=== PATIENT | female | born 1990 | race Caucasian/White ===

== ENCOUNTER 2017-07-29 13:07 | Emergency (ER) | payer BC ==
[2017-07-29 13:40] VITALS: BP 136/82
[2017-07-29] MEDS ORDERED: Ondansetron 4 MG/2 ML SDV IVPUSH ONE (13:52)
[2017-07-29] MEDS ORDERED: Sodium Chloride 0.9% 1,000 ML IV ONE (13:52)
[2017-07-29] MEDS ORDERED: Ketorolac 30 MG/ML SDV IVPUSH ONE (13:52)
--- NOTE | 2017-07-29 13:59 | EDM.PDOC ---
ED HPI GENERAL MEDICAL PROBLEM - General Chief Complaint: Back Pain or Injury Stated Complaint: BACK PAIN Time Seen by Provider: 07/29/17 13:35 Source of Information: Reports: Patient History Limitations: Reports: No Limitations - History of Present Illness INITIAL COMMENTS - FREE TEXT/NARRATIVE: HISTORY AND PHYSICAL: History of present illness: Patient is a 27-year-old female who presents to the emergency room with complaints of low back pain that radiates around the right hip into the groin. She states she was getting up out of her chair this morning when the pain suddenly came on. The pain as sharp and stabbing. It does not radiate down either glute. The pain was so crippling that she had to sit back down. She was able to get an appointment at the chiropractor this afternoon for an adjustment and did not get any relief with this. Denies any dysuria. Denies any recent injury or trauma. States she has had a kidney stone in the past and feels this pain is not similar to that instance. Review of systems: As per history of present illness and below otherwise all systems reviewed and negative. Past medical history: As per history of present illness and as reviewed below otherwise noncontributory. Surgical history: As per history of present illness and as reviewed below otherwise noncontributory. Social history: No reported history of drug or alcohol abuse. Family history: As per history of present illness and as reviewed below otherwise noncontributory. Physical exam: Gen.: Toxic appearing 27-year-old female. Alert and oriented. HEENT: Atraumatic, normocephalic, pupils reactive, negative for conjunctival pallor or scleral icterus, mucous membranes moist, throat clear, neck supple, nontender, trachea midline. Lungs: Clear to auscultation, breath sounds equal bilaterally, chest nontender. Heart: S1S2, regular, negative for clicks, rubs, or JVD. Abdomen: Soft, nondistended, nontender. Negative for masses or hepatosplenomegaly. Negative for costovertebral tenderness. Pelvis: Stable nontender. Genitourinary: Deferred. Rectal: Deferred. Cervical spine/back: Vertebral with pinpoint tenderness with palpation. No fecal or urinary incontinence. Extremities: Atraumatic, negative for cords or calf pain. Neurovascular unremarkable. Neuro: Awake, alert, oriented. Cranial nerves II through XII unremarkable. Cerebellum unremarkable. Motor and sensory unremarkable throughout. Exam nonfocal. Diagnostics: CBC, CMP, UA Therapeutics: IV fluid, Toradol, Zofran Impression: Low back pain without sciatica Plan: 1. Today's labs and CT scan were normal. Your pain is likely caused by a muscular strain. A prescription for a muscle relaxer has been given to you. Flexeril (#10) be taken 3 times daily as needed. Please do not take this medication while needing to be functioning at work or while driving as it may cause drowsiness. Cataflam has been prescribed 1 tab 3 times a day as needed for pain this is an anti-inflammatory pain medication, do not take any additional NSAIDs while taking this such as Aleve or ibuprofen. Apply gentle heat to the area and perform gentle stretching 2. Follow-up with your primary care provider in the next 1-2 days. Return to the ED as needed and as discussed Definitive disposition and diagnosis as appropriate pending reevaluation and review of above. Onset: Today Location: Reports: Back low back Pain Score (Numeric/FACES): 10 - Related Data Allergies Allergy/AdvReac Type Severity Reaction Status Date / Time ciprofloxacin [From Cipro] Allergy Burning Verified 10/29/16 17:02 ciprofloxacin HCl Allergy Burning Verified 10/29/16 17:02 [From Cipro] Home Meds: Home Meds . [No Known Home Meds] 02/21/14 [History] Past Medical History - Past Health History Medical/Surgical History: Denies Medical/Surgical History - Past Surgical History HEENT Surgical History: Reports: Tonsillectomy Social & Family History - Family History Family Medical History: Noncontributory - Tobacco Use Smoking Status *Q: Current Every Day Smoker Years of Tobacco use: 10 Packs/Tins Daily: 1 Used Tobacco, but Quit: No Second Hand Smoke Exposure: No - Alcohol Use Days Per Week of Alcohol Use: 0 - Recreational Drug Use Recreational Drug Use: No ED ROS GENERAL - Review of Systems Review Of Systems: ROS reveals no pertinent complaints other than HPI. ED EXAM,LOWER BACK PAIN/INJURY - Physical Exam Exam: See Below (See dictation) Course - Vital Signs Last Recorded V/S: Last Vital Signs Temp 36.7 C 07/29/17 13:07 Pulse 96 07/29/17 13:07 Resp 20 07/29/17 13:07 BP 136/82 07/29/17 13:07 Pulse Ox 98 07/29/17 13:07 - Orders/Labs/Meds Labs: Laboratory Tests 07/29/17 07/29/17 07/29/17 Range/Units 14:00 14:00 14:01 WBC 9.70 (4.0-11.0) K/uL RBC 4.83 (4.30-5.90) M/uL Hgb 14.8 (12.0-16.0) g/dL Hct 43.2 (36.0-46.0) % MCV 89.4 (80.0-98.0) fL MCH 30.6 (27.0-32.0) pg MCHC 34.3 (31.0-37.0) g/dL RDW Std Deviation 42.5 (28.0-62.0) fl RDW Coeff of Tammi 13 (11.0-15.0) % Plt Count 341 (150-400) K/uL MPV 10.40 (7.40-12.00) fL Neut % (Auto) 62.5 (48.0-80.0) % Lymph % (Auto) 25.7 (16.0-40.0) % Menard % (Auto) 6.7 (0.0-15.0) % Eos % (Auto) 4.6 (0.0-7.0) % Baso % (Auto) 0.5 (0.0-1.5) % Neut # (Auto) 6.1 H (1.4-5.7) K/uL Lymph # (Auto) 2.5 H (0.6-2.4) K/uL Menard # (Auto) 0.7 (0.0-0.8) K/uL Eos # (Auto) 0.5 (0.0-0.7) K/uL Baso # (Auto) 0.1 (0.0-0.1) K/uL Nucleated RBC % 0.0 /100WBC Nucleated RBCs # 0 K/uL Sodium (136-146) mmol/L Potassium (3.5-5.1) mmol/L Chloride (98-110) mmol/L Carbon Dioxide (21-31) mmol/L BUN (6.0-23.0) mg/dL Creatinine (0.6-1.5) mg/dL Est Cr Clr Drug Dosing Estimated GFR (MDRD) ml/min Glucose (60-110) mg/dL Calcium (8.8-10.8) mg/dL Total Bilirubin (0.1-1.5) mg/dL AST (5-40) IU/L ALT (8-54) IU/L Alkaline Phosphatase (40-150) Total Protein (6.0-8.0) g/dL Albumin (3.5-5.0) g/dL Globulin (2.0-3.5) g/dL Albumin/Globulin Ratio (1.3-2.8) Urine Color YELLOW Urine Appearance SLT CLOUDY Urine pH 6.0 (5.0-8.0) Ur Specific [place] 1.025 (1.001-1.035) Urine Protein NEGATIVE (NEGATIVE) mg/dL Urine Glucose (UA) NEGATIVE (NEGATIVE) mg/dL Urine Ketones NEGATIVE (NEGATIVE) mg/dL Urine Occult Blood SMALL H (NEGATIVE) Urine Nitrite NEGATIVE (NEGATIVE) Urine Bilirubin NEGATIVE (NEGATIVE) Urine Urobilinogen 0.2 (<2.0) EU/dL Ur Leukocyte Esterase NEGATIVE (NEGATIVE) Urine RBC 2-4 (0-2/HPF) Urine WBC 0-2 (0-5/HPF) Ur Epithelial Cells MODERATE (NONE-FEW) Urine Bacteria FEW (NEGATIVE) Urine Mucus LIGHT (NONE-MOD) Urine HCG, Qual NEGATIVE (NEGATIVE) 07/29/17 Range/Units 14:01 WBC (4.0-11.0) K/uL RBC (4.30-5.90) M/uL Hgb (12.0-16.0) g/dL Hct (36.0-46.0) % MCV (80.0-98.0) fL MCH (27.0-32.0) pg MCHC (31.0-37.0) g/dL RDW Std Deviation (28.0-62.0) fl RDW Coeff of Tammi (11.0-15.0) % Plt Count (150-400) K/uL MPV (7.40-12.00) fL Neut % (Auto) (48.0-80.0) % Lymph % (Auto) (16.0-40.0) % Menard % (Auto) (0.0-15.0) % Eos % (Auto) (0.0-7.0) % Baso % (Auto) (0.0-1.5) % Neut # (Auto) (1.4-5.7) K/uL Lymph # (Auto) (0.6-2.4) K/uL Menard # (Auto) (0.0-0.8) K/uL Eos # (Auto) (0.0-0.7) K/uL Baso # (Auto) (0.0-0.1) K/uL Nucleated RBC % /100WBC Nucleated RBCs # K/uL Sodium 138 (136-146) mmol/L Potassium 4.0 (3.5-5.1) mmol/L Chloride 111 H (98-110) mmol/L Carbon Dioxide 20 L (21-31) mmol/L BUN 12 (6.0-23.0) mg/dL Creatinine 0.8 (0.6-1.5) mg/dL Est Cr Clr Drug Dosing TNP Estimated GFR (MDRD) > 60.0 ml/min Glucose 118 H (60-110) mg/dL Calcium 9.4 (8.8-10.8) mg/dL Total Bilirubin 0.3 (0.1-1.5) mg/dL AST 11 (5-40) IU/L ALT 8 (8-54) IU/L Alkaline Phosphatase 48 (40-150) Total Protein 7.2 (6.0-8.0) g/dL Albumin 4.2 (3.5-5.0) g/dL Globulin 3.0 (2.0-3.5) g/dL Albumin/Globulin Ratio 1.4 (1.3-2.8) Urine Color Urine Appearance Urine pH (5.0-8.0) Ur Specific [place] (1.001-1.035) Urine Protein (NEGATIVE) mg/dL Urine Glucose (UA) (NEGATIVE) mg/dL Urine Ketones (NEGATIVE) mg/dL Urine Occult Blood (NEGATIVE) Urine Nitrite (NEGATIVE) Urine Bilirubin (NEGATIVE) Urine Urobilinogen (<2.0) EU/dL Ur Leukocyte Esterase (NEGATIVE) Urine RBC (0-2/HPF) Urine WBC (0-5/HPF) Ur Epithelial Cells (NONE-FEW) Urine Bacteria (NEGATIVE) Urine Mucus (NONE-MOD) Urine HCG, Qual (NEGATIVE) Meds: Medications Discontinued Medications Generic Name Dose Route Start Last Admin Trade Name Nuno PRN Reason Stop Dose Admin Sodium Chloride 1,000 mls @ 999 mls/hr 07/29/17 13:52 07/29/17 14:21 Normal Saline IV 07/29/17 14:52 999 mls/hr STAT ONE Administration Ketorolac Tromethamine 30 mg 07/29/17 13:52 07/29/17 14:20 Toradol IVPUSH 07/29/17 13:53 30 mg ONETIME ONE Administration Ondansetron HCl 4 mg 07/29/17 13:52 07/29/17 14:21 Zofran IVPUSH 07/29/17 13:53 4 mg ONETIME ONE Administration Departure - Departure Time of Disposition: 15:35 Disposition: Home, Self-Care 01 Clinical Impression: Back pain without sciatica - Discharge Information Referrals: PCP,None [Primary Care Provider] - Forms: ED Department Discharge Additional Instructions: My general discharge The following information is given to patients seen in the emergency department who are being discharged to home. This information is to outline your options for follow-up care. We provide all patients seen in our emergency department with a follow-up referral. The need for follow-up, as well as the timing and circumstances, are variable depending upon the specifics of your emergency department visit. If you don't have a primary care physician on staff, we will provide you with a referral. We always advise you to contact your personal physician following an emergency department visit to inform them of the circumstance of the visit and for follow-up with them and/or the need for any referrals to a consulting specialist. The emergency department will also refer you to a specialist when appropriate. This referral assures that you have the opportunity for follow-up care with a specialist. All of these measure are taken in an effort to provide you with optimal care, which includes your follow-up. Under all circumstances we always encourage you to contact your private physician who remains a resource for coordinating your care. When calling for follow-up care, please make the office aware that this follow-up is from your recent emergency room visit. If for any reason you are refused follow-up, please contact the [facility] Emergency Department at and asked to speak to the emergency department charge nurse. [facility] [address] [place] [id number] 1. Today's labs and CT scan were normal. Your pain is likely caused by a muscular strain. A prescription for a muscle relaxer has been given to you. Flexeril (#10) be taken 3 times daily as needed. Please do not take this medication while needing to be functioning at work or while driving as it may cause drowsiness. Cataflam has been prescribed 1 tab 3 times a day as needed for pain this is an anti-inflammatory pain medication, do not take any additional NSAIDs while taking this such as Aleve or ibuprofen. Apply gentle heat to the area and perform gentle stretching 2. Follow-up with your primary care provider in the next 1-2 days. Return to the ED as needed and as discussed
[2017-07-29 14:40] LABS: CHLORIDE,CL 111 mmol/L (98-110); SODIUM,NA 138 mmol/L (136-146)
--- NOTE | 2017-07-29 15:24 | CT ---
CT of the abdomen and pelvis without contrast. HISTORY: Pain TECHNIQUE: Axial CT images were obtained of the abdomen and pelvis without contrast. Coronal and sagi ttal reconstructions obtained. FINDINGS: The lung bases are clear, no pleural effusion. The liver, spleen, adrenal glands, and pancreas appear unremarkable for noncontrast examination. The gallbladder appears normal. There is no bulky retroperitoneal lymphadenopathy. No abdominal ascites. Punctate nonobstructing right renal stone noted. No evidence of obstructive uropathy bilaterally. The large and small bowel are normal in caliber without evidence of obstruction. The appendix appears normal. There is no bulky pelvic lymphadenopathy. Trace physiologic free fluid. No free air. The uri nary bladder appears normal. The visualized osseous structures appear normal. IMPRESSION: 1. Punctate nonobstructing right renal stone without evidence of obstructive uropathy.
== END 2017-07-29 16:10 | disposition home or self-care (01) ==
LOC: MW.ED 13:07
DX: M54.5 Low back pain (principal); F17.210 Nicotine dependence, cigarettes, uncomplicated; Z88.1 Allergy status to other antibiotic agents
CPT/HCPCS: 36415; 74176; 80053; 81001; 81025; 85025; 96361; 96372; 96374; 96375; 99284; J1885; J2360; J2405; J7040; 99283

== ENCOUNTER 2022-03-21 01:33 | Emergency (ER) | payer BC ==
[2022-03-21] MEDS ORDERED: Pantoprazole 40 MG in Sodium Chloride 0.9% 10 ML IVPUSH STA (01:41)
[2022-03-21] MEDS ORDERED: Ondansetron 4 MG/2 ML SDV IVPUSH ONE (01:41)
[2022-03-21] MEDS ORDERED: Pantoprazole 40 MG Vial ONE (02:00)
[2022-03-21] MEDS ORDERED: Ondansetron 4 MG/2 ML SDV ONE (02:00)
[2022-03-21 02:16] LABS: CARBON DIOXIDE,CO2 27.1 mmol/L (21.0-32.0); POTASSIUM,K 3.5 mmol/L (3.5-5.1)
[2022-03-21] MEDS ORDERED: Alum Hydro/Mag Hydro/Simeth XS 15 ML, Lidocaine 2% 5 ML PO ONE ×2 (02:41)
[2022-03-21] MEDS ORDERED: Aluminum Hydroxide/Magnesium Hydroxide/Simethicone XS Susp 30 ML Cup ONE (02:48)
[2022-03-21] MEDS ORDERED: Lidocaine 2% Viscous Solution 15 ML UD ONE (02:49)
[2022-03-21 04:36] VITALS: PULSE 68
[2022-03-21 05:15] VITALS: BP 105/65
== END 2022-03-21 05:13 | disposition home or self-care (01) ==
LOC: MW.ED 01:33
DX: K29.70 Gastritis, unspecified, without bleeding (principal); R07.9 Chest pain, unspecified; Z88.1 Allergy status to other antibiotic agents
CPT/HCPCS: 36415; 71045; 80053; 83690; 84484; 84703; 85025; 93005; 96374; 96375; 99285; A9270; C9113; J2405; J3490; 93010; 99284

== ENCOUNTER 2022-04-08 10:27 | Emergency (ER) | payer BC ==
[2022-04-08 11:55] VITALS: BP 102/70; PULSE 88
[2022-04-08] MEDS: Dexamethasone 10 MG/ML SDV IM STA (11:55)
== END 2022-04-08 11:57 | disposition home or self-care (01) ==
LOC: MW.ED 10:27
DX: J02.9 Acute pharyngitis, unspecified (principal); F17.210 Nicotine dependence, cigarettes, uncomplicated; Z88.1 Allergy status to other antibiotic agents; Z86.16 Personal history of COVID-19; Z20.822 Contact with and (suspected) exposure to COVID-19
CPT/HCPCS: 87635; 87651; 96372; 99283; J1100; U0002